=== PATIENT | female | born 1945 | race Caucasian/White ===

== ENCOUNTER 2018-01-30 11:49 | Day surgery (SDC) | payer MEDICARE, OTHER ==
[~2018-01-30 11:49] MED LIST: AMOX500T PO; Meclizine Hcl PO; RYTH225C PO; TOPR50TA PO
[2018-01-30] MEDS ORDERED: PROP1CAP32 PO (12:36)
[2018-01-30] MEDS ORDERED: LEVO88TA2 PO (12:36)
[2018-01-30] MEDS ORDERED: GABA300C5 PO (12:36)
[2018-01-30] MEDS ORDERED: TOPR50TA PO (12:36)
[2018-01-30] MEDS ORDERED: ECASA81 PO (12:36)
[2018-01-30] MEDS ORDERED: MIDAZOLAM HCL 5 MG/ML VIAL (1 ML) ONE (13:52)
[2018-01-30] MEDS ORDERED: ceFAZolin 2 GM/NS PREMIX 100 ML IV ONE (14:00)
[2018-01-30] MEDS ORDERED: ceFAZolin 2 GM in NS 100 ML IV ONE (14:00)
--- NOTE | 2018-01-30 15:17 | MR ---
cc: Juan Barreto MD DATE: 01/30/2018 INDICATION: Syncope. PROCEDURE PERFORMED: 1. Placement of Medtronic Reveal LINQ MRI compatible loop monitor. 2. Moderate sedation. ACCESS SITE: Left anterior chest. EQUIPMENT USED: Medtronic Reveal LINQ, model LNQ11, MRI compatible loop monitor. Serial # [id number]. COMPLICATIONS: None. BLOOD LOSS: Less than 1 mL MEDICATIONS: Versed, fentanyl, Ancef IV. DESCRIPTION OF PROCEDURE: After the left chest was prepped and draped in the usual sterile manner, local anesthesia was applied. Medtronic Reveal LINQ MRI compatible loop monitor was placed without difficulties. R-wave was 0.94 millivolts. DIAGNOSIS: Successful placement of Medtronic Reveal LINQ MRI compatible loop monitor. DISPOSITION: The patient will continue her current medical program. We will initiate long-term monitoring of her device. I will see her back for followup in our office after discharge. Juan Barreto MD OQ/SB , 02:52 PM , 03:16 PM OFE
== END 2018-01-30 16:11 | disposition home or self-care (01) ==
LOC: HDOC 11:49 → HDIC 11:49 → HDOC 16:11
PROVIDERS: ATTEND Internal Medicine Interventional Cardiology
DX: R55 Syncope and collapse (principal); I20.9 Angina pectoris, unspecified; I47.1 Supraventricular tachycardia; R06.00 Dyspnea, unspecified; I65.29 Occlusion and stenosis of unspecified carotid artery; E78.5 Hyperlipidemia, unspecified; E04.1 Nontoxic single thyroid nodule; R06.02 Shortness of breath
CPT/HCPCS: 33282; 99152; C1764; J2250; J3010